=== PATIENT | male | born 1995 | race Caucasian/White ===

== ENCOUNTER 2017-10-21 21:11 | Emergency (ER) | payer OTHER ==
[2017-10-21] MEDS ORDERED: IPRATROPIUM/ALBUTEROL 3 ML DEYVIAL ONE (22:03)
[2017-10-21] MEDS ORDERED: IPRATROPIUM/ALBUTEROL 3 ML DEYVIAL IH ONE (22:03)
--- NOTE | 2017-10-21 22:03 | EDPHY ---
General Time Seen by Provider: 10/21/17 21:54 Narrative: CHIEF COMPLAINT: Cough, wheezing, shortness of breath HISTORY OF PRESENT ILLNESS: Patient presents with complaints of cough, wheezing and shortness of breath. This started last night after playing soccer. He felt some wheezing and cough. He felt this was related to exercise-induced asthma, as he has experienced this before. He has not had any chest pain at any time. He has had a mild, dry cough. Occasional shortness of breath. Worsened today after activity and while being at the game. Also worsen after smoking marijuana today. He has no headache. No neck pain. No fever. No nausea or vomiting. No abdominal pain. Urinary complaints. No rash. Symptoms are mild at this time. No other associated complaints or modifying factors. REVIEW OF SYSTEMS: 10 systems were reviewed and negative with the exception of the elements mentioned in the history of present illness. PCP: None [facility] SPECIALISTS: None PAST MEDICAL HISTORY: Exercise-induced asthma PAST SURGICAL HISTORY: No surgical history SOCIAL HISTORY: Occasional marijuana and alcohol ingestion. [employer] student. Originally from [facility] FAMILY HISTORY: Noncontributory EXAMINATION: General Appearance: Alert, no distress Head: normocephalic, atraumatic Eyes: Pupils equal and round, no conjunctival pallor or injection ENT, Mouth: Mucous membranes moist Neck: Normal inspection, supple, non-tender. No meningismus. Midline trachea. Respiratory: Mild expiratory wheezes. No rhonchi. No crackles. No diminishment. No retractions or distress Cardiovascular: Regular rate and rhythm Gastrointestinal: Abdomen is soft and nontender Back: non-tender, no bony abnormalities Neurological: A&O, nonfocal, normal gait Skin: Warm and dry, no rash Extremities: Nontender, no pedal edema Psychiatric: Mood and affect normal DIFFERENTIAL DIAGNOSES: Including but not limited to exercise-induced asthma, bronchospasm, bronchiolitis, bronchitis, pneumonia, pneumonitis MDM: 9:55 p.m. Cough, shortness of breath over the past 24 hr with suspected reactive airway involvement. He is well-appearing nontoxic. Vital signs are within normal limits but I do not appreciate any evidence of pneumonia by auscultation. No evidence of meningitis. I have ordered DuoNeb treatment and will re-evaluate. 10:45 p.m. Patient re-evaluated after nebulizer treatment. He is feeling significantly better. Lungs are clear with no expiratory wheezing. We discussed discharge home with therapy for likely bronchitis with exercise-induced asthma exacerbation. I do not feel he warrants a chest x-ray at this time. Vital signs are within normal limits with excellent oxygenation on room air. He is feeling significantly better would like to go home. We discussed short burst of steroid therapy given his history of exercise induced asthma. He will go home with an albuterol inhaler in hand. I recommend that he use this before activity for the next few days, and as needed during activity with wheezing shortness of breath. We discussed ED precautions. He will follow up with [facility] at . Discharged home stable condition. SUPERVISION: This patient was independently evaluated without direct involvement of or examination by the attending physician. CONSULTATION: None - History Smoking Status: Current some day smoker - Objective Vital Signs: Initial Vital Signs Temperature (C) 98.2 F 10/21/17 21:12 Heart Rate 96 10/21/17 21:12 Respiratory Rate 16 10/21/17 21:12 Blood Pressure 137/82 H 10/21/17 21:12 O2 Sat (%) 93 10/21/17 21:12 O2 Delivery Mode Room Air Allergies/Adverse Reactions: No Known Allergies Allergy (Unverified 10/21/17 21:15) Home Medications: Medication Instructions Recorded predniSONE [Deltasone] 60 mg PO DAILY #6 tablet 10/21/17 Medications Given: Discontinued Medications Albuterol/Ipratropium (Duoneb) 3 ml IH EDNOW ONE Stop: 10/21/17 22:04 Last Admin: 10/21/17 22:04 Dose: 3 ml Departure - Departure Disposition: Home, Routine, Self-Care Clinical Impression: Wheezing Acute bronchitis Qualifiers: Bronchitis organism: unspecified organism Qualified Code(s): J20.9 - Acute bronchitis, unspecified Condition: Good Instructions: Albuterol (By breathing), Acute Bronchitis (ED), Wheezing (ED) Additional Instructions: 1. Albuterol inhaler 30 min before activity, and every 4-6 hours as needed for wheezing or shortness of breath 2. Prednisone as prescribed for the next 2 days. Your 1st dose was given here, 1 dose on Monday, and final thus on Monday 3. Follow up with primary care physician or [facility] at on Monday for re-evaluation 4. ED precautions for any chest pain, exertional pain, shortness of breath fever Referrals: [facility],. [Clinic] - As per Instructions Kitty Walton MD [Medical Doctor] - As per Instructions Prescriptions: predniSONE [Deltasone] 60 mg PO DAILY #6 tablet
[2017-10-21] MEDS ORDERED: predniSONE 20 MG TAB PO ONE (22:49)
[2017-10-21] MEDS ORDERED: ALBUTEROL INH PREPACK MDI TAKEHOME ONE (22:49)
[2017-10-21 23:05] VITALS: BP 122/67
== END 2017-10-21 23:02 | disposition home or self-care (01) ==
DX: J20.9 Acute bronchitis, unspecified (principal)
CPT/HCPCS: J7512